=== PATIENT | male | born 1945 | race Caucasian/White ===

== ENCOUNTER → 2019-08-27 | Outpatient (CLI) | payer MEDICARE, OTHER ==
--- NOTE | 2019-08-27 11:59 | Diagnostic Imaging Report ---
Exam: Chest radiograph Clinical History: Abnormal labs Findings: The cardiomediastinal silhouette and lungs are normal. The regional skeleton and soft tissue are unremarkable. There is no evidence of pleural effusion or pneumothorax. Subcentimeter calcified granuloma is seen in the left lower lung. Post median sternotomy changes noted. Impression: No radiographic evidence of acute cardiopulmonary disease. Signed by: Dr. Max Kapoor MD on 08/27/2019 11:56 AM
== END ==
LOC: RAD 11:07
PROVIDERS: ATTEND General Practice
DX: R94.8 Abnormal results of function studies of other organs and systems (principal)
CPT/HCPCS: 71046

== ENCOUNTER → 2020-10-03 | Outpatient (CLI) | payer MEDICARE | LOC: RAD 16:23 | PROVIDERS: ATTEND Thoracic Surgery (Cardiothoracic Vascular Surgery) | DX: R06.02 Shortness of breath (principal); R10.11 Right upper quadrant pain; Z95.1 Presence of aortocoronary bypass graft | CPT/HCPCS: 71046 ==

== ENCOUNTER 2022-05-16 12:09 | Emergency (ER) | payer MEDICARE ==
[~2022-05-16] VITALS: Ht 172.7 cm; Wt 99.3 kg
== END 2022-05-16 12:55 | disposition home or self-care (01) ==
LOC: ER 12:12
DX: M25.531 Pain in right wrist (principal); M10.9 Gout, unspecified
CPT/HCPCS: 99282